=== PATIENT | female | born 1950 | race Caucasian/White ===

== ENCOUNTER 2016-04-28 23:25 | Emergency (ER) | payer BC ==
[~2016-04-28] VITALS: Ht 157.5 cm; Wt 77.1 kg
[2016-04-28] MEDS ORDERED: IBUP200T77 PO (23:30)
[2016-04-28] MEDS ORDERED: OSEL75CA PO (23:30)
--- NOTE | 2016-04-28 23:30 | PHYS DOC ---
Past Medical History Past Medical History: No Pertinent History Past Surgical History: No Surgical History Alcohol Use: None Drug Use: None Adult General Chief Complaint Chief Complaint: COUGH HPI HPI 65-year-old female presenting to the emergency department today with cough and runny nose and recent exposure to influenza. She also endorses having fevers chills and myalgias. The pain is sharp moderate generalized nonradiating and without alleviating factors. It is worse at night. Review of systems is negative for chest pain shortness of breath abdominal pain. Positive for fevers and chills. All other review of systems is negative unless otherwise noted in history of present illness. Review of Systems Review of Systems SEE ABOVE. Allergies Allergies Allergies Coded Allergies Type Severity Reaction Last Updated Verified No Known Drug Allergies 04/28/16 No Physical Exam Physical Exam Constitutional: Well developed, well nourished, no acute distress, non-toxic appearance. HENT: Normocephalic, atraumatic, bilateral external ears normal, oropharynx moist, no oral exudates, nose normal. [] Eyes: PERRLA, EOMI, conjunctiva normal, no discharge. Neck: Normal range of motion, no tenderness, supple, no stridor. [] Cardiovascular:Heart rate regular rhythm, no murmur Lungs & Thorax: Bilateral breath sounds clear to auscultation [] Abdomen: Bowel sounds normal, soft, no tenderness, no masses, no pulsatile masses. [] Skin: Warm, dry, no erythema, no rash. Back: No tenderness, no CVA tenderness. [] Extremities: No tenderness, no cyanosis, no clubbing, ROM intact, no edema. Neurologic: Alert and oriented X 3, normal motor function, normal sensory function, no focal deficits noted. [] Psychologic: Affect normal, judgement normal, mood normal. [] Current Patient Data Vital Signs Vital Signs Date Time Temp Pulse Resp B/P Pulse Ox O2 Delivery O2 Flow Rate FiO2 04/28/16 23:34 98.4 92 16 135/55 97 Room Air 98.4 EKG EKG [] Radiology/Procedures Radiology/Procedures [] Course & Med Decision Making Course & Med Decision Making Pertinent Labs and Imaging studies reviewed. (See chart for details) [] 65-year-old female presenting to the emergency department today with signs and symptoms suggestive of influenza with recent flu exposure. Vital signs afebrile satting well on room air. Physical exam showed clear lungs otherwise unremarkable. She currently is on antibiotics for pneumonia. Given the signs and symptoms I felt it appropriate to initiate Tamiflu to follow-up with her primary care physician over the next 2-3 days. [place] Disclaimer Wanda Disclaimer This electronic medical record was generated, in whole or in part, using a voice recognition dictation system. Departure Departure Impression: Primary Impression: Influenza Disposition: HOME, SELF-CARE Condition: STABLE Referrals: BERNADETTE CHOW MD Patient Instructions: Influenza, Adult Additional Instructions: Thank you for allowing us to participate in your care today. Followup with your primary care physician in 3 days if your symptoms do not improve. If you do not have a primary care provider you can ask for a list of our primary care providers. Return to the emergency department you have any new or concerning findings. This should be evaluated by the primary care physician and any necessary consulting services for continued management within a few days after discharge. Return to emergency room if you have any new or concerning symptoms including but not limited to fever, chills, nausea, vomiting, intractable pain, any new rashes, chest pain, shortness of air, uncontrolled bleeding, difficulty breathing, and/or vision loss. Scripts Oseltamivir Phosphate (Tamiflu)75 Mg Capsule1 Cap PO BID #10 CAP Prov:HODAN HURTADO MD 04/28/16 Ibuprofen 200 Mg [id number] Mg PO PRN Q6HRS PRN INFLAMMATION #30 TAB Prov:HODAN HURTADO MD 04/28/16 HODAN HURTADO MD Apr 28, 2016 23:30
[2016-04-28 23:34] VITALS: BP 135/55
== END 2016-04-28 23:42 | disposition home or self-care (01) ==
LOC: ER 23:25
DX: J11.1 Influenza due to unidentified influenza virus with other respiratory manifestations (principal)
CPT/HCPCS: 99283

== ENCOUNTER 2017-04-01 20:49 | Emergency (ER) | payer SELFPAY, BC, MEDICARE ==
[2017-04-01] MEDS: IV NORMAL SALINE 1000ML BAG 1,000 ML IV (21:17)
[2017-04-01] MEDS: ONDANSETRON PF 4 MG/2 ML VIAL. IV (21:32)
[2017-04-01] MEDS: HYDROmorphone 2 MG/ML VIAL IV/SQ ×3 (21:33→22:48)
[2017-04-01] MEDS: LIDOCAINE 1% PF 2 ML VIAL. INJ (23:30)
== END 2017-04-02 01:31 | disposition home or self-care (01) ==
LOC: ER 04-02 01:31
DX: S52.531A Colles' fracture of right radius, initial encounter for closed fracture (principal); W18.39XA Other fall on same level, initial encounter; Y93.89 Activity, other specified; Y99.8 Other external cause status; Y92.89 Other specified places as the place of occurrence of the external cause
CPT/HCPCS: 25605; 73030; 73080; 73110; 96361; 96374; 96375; 96376; 99285-25; J1170; J2405; J7030

== ENCOUNTER 2021-02-10 03:43 | Emergency (ER) | payer MEDICARE ==
[~2021-02-10] VITALS: Ht 154.9 cm; Wt 76.5 kg
[~2021-02-10 03:43] MED LIST: CHOL100013 PO; HYDR-2761 PO; IBUP200T77 PO; OSEL75CA PO; VITA-8 PO
[2021-02-10] MEDS ORDERED: ORPHENADRINE CITRATE 60 MG/2 ML VIAL. IV ONE (05:30)
[2021-02-10] MEDS ORDERED: methylPREDNISolone SOD SUCC PF 125 MG/2 ML VIAL. IV ONE (05:30)
[2021-02-10 05:37] LABS: CALCIUM 8.9 mg/dL (8.5-10.1); CREATININE 0.6 mg/dL (0.6-1.0); GFR 99.1; POTASSIUM 4.1 mmol/L (3.5-5.1)
[2021-02-10 05:43] LABS: ALBUMIN 2.9 g/dL (3.4-5.0); ALBUMIN/GLOBULIN RATIO 0.8 (1.0-1.7); TOTAL BILIRUBIN 0.2 mg/dL (0.2-1.0); TOTAL PROTEIN 6.4 g/dL (6.4-8.2)
[2021-02-10] MEDS ORDERED: IOHEXOL 350 MG/ML 100 ML VIAL. IV ONE (06:00)
[2021-02-10] MEDS ORDERED: CONTRAST GIVEN. MC PRN (06:00)
[2021-02-10 06:13] LABS: BASO # 0.1 x10^3/uL (0.0-0.2); BASO % 1 % (0-3); EOS # 0.2 x10^3/uL (0.0-0.7); EOS % 4 % (0-3); HEMATOCRIT 34.1 % (36.0-47.0); HEMOGLOBIN 10.9 g/dL (12.0-15.5); LYMPH # 1.7 x10^3/uL (1.0-4.8); LYMPH % 26 % (24-48); MEAN CORPUSCULAR HEMOGLOBIN 25 pg (25-35); MEAN CORPUSCULAR HGB CONC 32 g/dL (31-37); MEAN CORPUSCULAR VOLUME 77 fL (79-100); MONO # 0.7 x10^3/uL (0.0-1.1); MONO % 11 % (0-9); NEUT # 3.8 x10^3/uL (1.8-7.7); NEUT % 59 % (31-73); PLATELET COUNT 338 x10^3/uL (140-400); RED BLOOD COUNT 4.41 x10^6/uL (3.50-5.40); RED CELL DISTRIBUTION WIDTH 15.9 % (11.5-14.5); WHITE BLOOD COUNT 6.5 x10^3/uL (4.0-11.0)
[2021-02-10 06:24] VITALS: BP 170/74
--- NOTE | 2021-02-10 06:26 | PHYS DOC ---
Past Medical History Past Medical History: No Pertinent History Additional Past Medical Histor: WRIST FRACTURE (KHUSHI VEGA MD) Past Surgical History: Other Additional Past Surgical Histo: right rotator cuff, R WRIST FRACTURE, CARPAL TUNNEL SX (KHUSHI VEGA MD) Smoking Status: Never Smoker Alcohol Use: None Drug Use: None (KHUSHI VEGA MD) Adult General Chief Complaint Chief Complaint: NECK PAIN HPI HPI The patient is a 70-year-old female with no significant past medical history for which she takes daily medication. She presents for evaluation of 3 weeks of discomfort in a bandlike distribution originating on the left side of her neck, running behind her left ear and radiating up over her left parietal and temporal scalp. Discomfort otherwise does not radiate and nothing seems to make it better or worse. It is not reproducible to palpation and patient states it does not feel like a headache; it is much more superficial than that. No associated fevers, nausea or vomiting, focal or lateralizing weakness, numbness or tingling, midline neck pain/stiffness/meningismus (patient ranges her neck fully in all dimensions without discomfort or distress), vision changes, recent injury or trauma to her head, shortness of breath or chest pain of any kind. Patient has visited her family doctor who prescribed a muscle relaxant which she recently ran out of. She states it did not help. She has also gone to her chiropractor and had multiple rounds of neck manipulation over the last 3 weeks as well. Patient is in no acute distress, ambulatory to the emergency department with a narrow, steady gait and vital signs are appropriate here aside from modestly elevated blood pressure. (KHUSHI VEGA MD) Review of Systems Review of Systems A twelve point review of systems was completed and was negative except where noted in HPI above. (KHUSHI VEGA MD) Current Medications Current Medications Current Medications Medications (Trade) Dose Ordered Sig/Rachael Start Time Stop Time Status Last Admin Dose Admin Info (CONTRAST GIVEN -- Rx MONITORING) 1 each PRN DAILY PRN 02/10/21 06:00 02/12/21 05:59 Iohexol (Omnipaque 350 Mg/ml) 75 ml 1X ONCE 02/10/21 06:00 02/10/21 06:01 DC 02/10/21 05:53 75 ML Methylprednisolone Sodium Succinate (SOLU-Medrol 125MG VIAL) 125 mg 1X ONCE 02/10/21 05:30 02/10/21 05:31 DC 02/10/21 05:09 125 MG Orphenadrine Citrate (Norflex) 60 mg 1X ONCE 02/10/21 05:30 02/10/21 05:31 DC 02/10/21 05:09 60 MG (LANDEN GREEN MD) Allergies Allergies Allergies Coded Allergies Type Severity Reaction Last Updated Verified No Known Drug Allergies 04/03/17 No (LANDEN GREEN MD) Physical Exam Physical Exam Well-appearing 70-year-old female appearing nontoxic and in no acute distress. Head is normocephalic and atraumatic. Neck is supple and nontender. Band of discomfort which patient is experiencing is not reproducible to palpation. No neck stiffness/rigidity/meningismus seen and patient ranges her neck fully in all dimension without discomfort or distress. Oropharynx is moist. Lungs are clear to auscultation at all stations. There is a normal S1 and S2 without rubs or gallops and capillary refill is appropriate, less than 2 seconds globally. Abdomen is soft, nontender and nondistended. Skin is warm and dry without cyanosis, clubbing or edema. Psychiatrically, the patient demonstrates appropriate mood and affect and is alert. Neurologically, cranial nerves II through XII are intact and there are no lateralizing deficits seen. Speech is normal. Language is normal. Coordination is normal. There is no dysmetria with [id number] or [id number]-[id number] bilaterally. Strength is 5 out of 5 in all joints of bilateral upper and lower extremities. Sensation is intact to light touch in bilateral upper and lower extremities. Patient ambulates with a narrow, steady, non-ataxic gait here in the emergency department and is alert and oriented x4 (KHUSHI VEGA MD) Current Patient Data Vital Signs Vital Signs Date Time Temp Pulse Resp B/P (MAP) Pulse Ox O2 Delivery O2 Flow Rate FiO2 02/10/21 06:24 88 16 170/74 (106) 97 Room Air 02/10/21 03:53 97.8 97.8 (LANDEN GREEN MD) Lab Values Laboratory Tests Test 02/10/21 05:00 White Blood Count 6.5 x10^3/uL (4.0-11.0) Red Blood Count 4.41 x10^6/uL (3.50-5.40) Hemoglobin 10.9 g/dL (12.0-15.5) L Hematocrit 34.1 % (36.0-47.0) L Mean Corpuscular Volume 77 fL (79-100) L Mean Corpuscular Hemoglobin 25 pg (25-35) Mean Corpuscular Hemoglobin Concent 32 g/dL (31-37) Red Cell Distribution Width 15.9 % (11.5-14.5) H Platelet Count 338 x10^3/uL (140-400) Neutrophils (%) (Auto) 59 % (31-73) Lymphocytes (%) (Auto) 26 % (24-48) Monocytes (%) (Auto) 11 % (0-9) H Eosinophils (%) (Auto) 4 % (0-3) H Basophils (%) (Auto) 1 % (0-3) Neutrophils # (Auto) 3.8 x10^3/uL (1.8-7.7) Lymphocytes # (Auto) 1.7 x10^3/uL (1.0-4.8) Monocytes # (Auto) 0.7 x10^3/uL (0.0-1.1) Eosinophils # (Auto) 0.2 x10^3/uL (0.0-0.7) Basophils # (Auto) 0.1 x10^3/uL (0.0-0.2) Sodium Level 142 mmol/L (136-145) Potassium Level 4.1 mmol/L (3.5-5.1) Chloride Level 104 mmol/L (98-107) Carbon Dioxide Level 28 mmol/L (21-32) Anion Gap 10 (6-14) Blood Urea Nitrogen 22 mg/dL (7-20) H Creatinine 0.6 mg/dL (0.6-1.0) Estimated GFR (Cockcroft-Gault) 99.1 BUN/Creatinine Ratio 37 (6-20) H Glucose Level 107 mg/dL (70-99) H Calcium Level 8.9 mg/dL (8.5-10.1) Total Bilirubin 0.2 mg/dL (0.2-1.0) Aspartate Amino Transferase (AST) 47 U/L (15-37) H Alanine Aminotransferase (ALT) 65 U/L (14-59) H Alkaline Phosphatase 90 U/L (46-116) Total Protein 6.4 g/dL (6.4-8.2) Albumin 2.9 g/dL (3.4-5.0) L Albumin/Globulin Ratio 0.8 (1.0-1.7) L Laboratory Tests 02/10/21 05:00 Laboratory Tests 02/10/21 05:00 (LANDEN GREEN MD) EKG EKG [] (KHUSHI VEGA MD) Radiology/Procedures Radiology/Procedures [] (KHUSHI VEGA MD) Impressions: [facility] [address] [place] [address] IMAGING REPORT Signed PATIENT: EARLINE DISLA ACCOUNT: [id number] : 1950 LOCATION: ER AGE: 70 SEX: F EXAM STATUS: REG ER ORD. PHYSICIAN: KHUSHI VEGA MD REASON: head and neck pain, left sided, x3 weeks; multiple chiropractic manips PROCEDURE: CT ANGIOGRAPHY HEAD AND NECK STUDY: CT head without contrast and angiography of the head and neck INDICATION: Head and neck pain, left-sided for 3 weeks. Multiple chiropractic manipulations. COMPARISON: None TECHNIQUE: Axial CT imaging of the head and neck utilizing angiography protocol and performed after the intravenous administration of contrast. Precontrast imaging through the head was performed as well. Multiplanar reformats and 3D MIP acquisitions were obtained. Encountered areas of stenosis are measured per NASCET criteria. One or more of the following individualized dose reduction techniques were utilized for this examination: 1. Automated exposure control 2. Adjustment of the mA and/or kV according to patient size 3. Use of iterative reconstruction technique. FINDINGS: CT HEAD: The ventricles and sulci are normal. Mejía-white matter differentiation is maintained. No intracranial hemorrhage, acute infarct, or mass lesion. The calvarium is intact. Paranasal sinuses and mastoid air cells are clear. Lenses have been extracted. Globes and orbits are otherwise intact. CTA NECK: Arch/Proximal Great Vessels: Direct origin of left vertebral artery from the aortic arch. Great vessel origins are patent. Carotid Bifurcation/Cervical ICA: There are calcifications in the distal common carotid arteries and carotid bulbs, greater on the right. Common carotid arteries are patent. There is no significant stenosis of the internal carotid arteries. Vertebral Arteries: Vertebral arteries are normal in caliber and patent. CTA HEAD: Posterior Circulation: Intradural vertebral arteries, basilar artery, superior cerebellar arteries, and posterior cerebral arteries are normal in caliber and patent. Anterior Circulation: Internal carotid arteries, middle cerebral arteries, and anterior cerebral arteries are normal in caliber and patent. Small A1 segment of the left anterior cerebral artery is a normal variant. Veins: Dural venous sinuses are patent. No aneurysm, dissection, stenosis, or occlusion in the head or neck. MISCELLANEOUS: Lung apices are clear. There is reversal hydronephrosis. No acute fracture. Minimal anterolisthesis of C4 on C5 and C5 and C6. Severe disc space narrowing at C6-C7 with small anterior osteophytes. Foraminal narrowing at C6-C7. IMPRESSION: CT Head: 1. No acute intracranial abnormality. CT Angio Neck: 1. No large vessel occlusion in the neck. CT Angio Head: 1. No large vessel occlusion in the head. Electronically signed by: Yu Madrigal MD (02/10/2021 6:46 AM) [facility] DICTATED and SIGNED BY: YU MADRIGAL MD DATE: 02/10/21 [id number] (LANDEN GREEN MD) Course & Med Decision Making Course & Med Decision Making 70-year-old female presenting for left neck and head discomfort suspicious for occipital neuralgia. Will explore for other acute etiologies with work-up as noted and will then reevaluate. BALDEMAR to Dr. Green at 0600 pending rest of labs, CT reads and re-evaluation for disposition. (KHUSHI VEGA MD) Course & Med Decision Making Received patient in signout at [address] imaging work-up pending : CT/CTA head and neck were negative for arterial dissection and ICH. Patient is feeling slightly improved. Discussed potential treatment for occi pital neuralgia, will provide with a short course of steroids. I asked her to follow-up with her PCP regarding more specific treatments and potential referral should her symptoms persist. [phone] (LANDEN GREEN MD) Dragon Disclaimer Dragon Disclaimer This electronic medical record was generated, in whole or in part, using a voice recognition dictation system. (KHUSHI EVGA MD) Departure Departure Impression: Primary Impression: Occipital neuralgia of left side Disposition: HOME / SELF CARE / HOMELESS Condition: STABLE Referrals: STEVEN CABALLERO MD (PCP) Please schedule an appointment with your PCP should your symptoms persist to discuss other treatments for your presumed occipital neuralgia Patient Instructions: Occipital Neuralgia Scripts Prednisone (PREDNISONE) 50 Mg Tablet 1 TAB PO DAILY, #5 TAB 0 Refills Prov: LANDEN GREEN MD 02/10/21 KHUSHI VEGA MD Feb 10, 2021 06:26 LANDEN GREEN MD Feb 10, 2021 07:04
--- NOTE | 2021-02-10 06:48 | RAD ---
STUDY: CT head without contrast and angiography of the head and neck INDICATION: Head and neck pain, left-sided for 3 weeks. Multiple chiropractic manipulations. COMPARISON: None TECHNIQUE: Axial CT imaging of the head and neck utilizing angiography protocol and performed after t he intravenous administration of contrast. Precontrast imaging through the head was performed as well . Multiplanar reformats and 3D MIP acquisitions were obtained. Encountered areas of stenosis are patti ured per NASCET criteria. One or more of the following individualized dose reduction techniques were utilized for this examinat ion: 1. Automated exposure control 2. Adjustment of the mA and/or kV according to patient size 3. Use of iterative reconstruction technique. FINDINGS: CT HEAD: The ventricles and sulci are normal. Mejía-white matter differentiation is maintained. No intracranial hemorrhage, acute infarct, or mass lesion. The calvarium is intact. Paranasal sinuses and mastoid ai r cells are clear. Lenses have been extracted. Globes and orbits are otherwise intact. CTA NECK: Arch/Proximal Great Vessels: Direct origin of left vertebral artery from the aortic arch. Great vesse l origins are patent. Carotid Bifurcation/Cervical ICA: There are calcifications in the distal common carotid arteries and carotid bulbs, greater on the right. Common carotid arteries are patent. There is no significant sten osis of the internal carotid arteries. Vertebral Arteries: Vertebral arteries are normal in caliber and patent. CTA HEAD: Posterior Circulation: Intradural vertebral arteries, basilar artery, superior cerebellar arteries, a nd posterior cerebral arteries are normal in caliber and patent. Anterior Circulation: Internal carotid arteries, middle cerebral arteries, and anterior cerebral yo maricruz are normal in caliber and patent. Small A1 segment of the left anterior cerebral artery is a nor mal variant. Veins: Dural venous sinuses are patent. No aneurysm, dissection, stenosis, or occlusion in the head or neck. MISCELLANEOUS: Lung apices are clear. There is reversal hydronephrosis. No acute fracture. Minimal anterolisthesis o f C4 on C5 and C5 and C6. Severe disc space narrowing at C6-C7 with small anterior osteophytes. Lizbeth inal narrowing at C6-C7. IMPRESSION: CT Head: 1. No acute intracranial abnormality. CT Angio Neck: 1. No large vessel occlusion in the neck. CT Angio Head: 1. No large vessel occlusion in the head. Electronically signed by: Yu Madrigal MD (02/10/2021 6:46 AM) [facility]
[2021-02-10] MEDS ORDERED: PRED50TA PO (07:04)
== END 2021-02-10 07:10 | disposition home or self-care (01) ==
LOC: ER 03:43
DX: M54.81 Occipital neuralgia (principal); R51.9 Headache, unspecified; H92.02 Otalgia, left ear
CPT/HCPCS: 36415; 70450; 70496; 70498; 80053; 85025; 96374; 96375; 99285; J2360; J2930; Q9967